=== PATIENT | female | born 1945 | race Caucasian/White ===

== ENCOUNTER → 2017-09-26 | Outpatient (CLI) | payer MEDICARE, OTHER ==
[2017-09-26] MEDS: GADOBUTROL 7.5 MMOL/7.5 ML VIAL IV (08:37)
== END | disposition home or self-care (01) ==
LOC: KCIC MRI 07:45
DX: H90.5 Unspecified sensorineural hearing loss (principal)
CPT/HCPCS: 70553; 82565; A9585